=== PATIENT | female | born 1995 | race Caucasian/White ===

== ENCOUNTER 2019-11-03 01:04 | Emergency (ER) | payer OTHER ==
[~2019-11-03] VITALS: Ht 160 cm; Wt 50.4 kg
[2019-11-03 01:09] VITALS: BP 130/80
== END 2019-11-03 02:50 | disposition home or self-care (01) ==
LOC: ED 01:45
DX: J06.9 Acute upper respiratory infection, unspecified (principal); Z20.828 Contact with and (suspected) exposure to other viral communicable diseases
CPT/HCPCS: 71045; 87081; 87880; 99284